=== PATIENT | female | born 1955 | race Caucasian/White ===

== ENCOUNTER 2018-05-31 10:09 | Inpatient (IN) | payer OTHER ==
[~2018-05-31] VITALS: Ht 157.5 cm; Wt 93.5 kg
--- NOTE | 2018-05-31 10:10 | NUR ---
Dr. Zavala at the bedside for MSE.
[2018-05-31 10:26] LABS: BASOPHILS # (AUTO) 0.1 K/uL (0.0-8.0); BASOPHILS % (AUTO) 0.4 % (0.0-2.0); EOSINOPHILS % (AUTO) 0.1 % (0.0-7.0); HEMATOCRIT 35.7 % (31.2-41.9); HEMOGLOBIN 12.1 g/dL (10.9-14.3); LYMPHOCYTES # (AUTO) 1.6 K/uL (20.0-40.0); LYMPHOCYTES % (AUTO) 8.7 % (20.5-51.5); MEAN CORPUSCULAR HEMOGLOBIN 29.7 uug (24.7-32.8); MEAN CORPUSCULAR HGB CONC 34 g/dL (32.3-35.6); MEAN CORPUSCULAR VOLUME 87.5 fL (75.5-95.3); MONOCYTES # (AUTO) 0.6 K/uL (2.0-10.0); MONOCYTES % (AUTO) 3.6 % (0.0-11.0); NEUTROPHILS # (AUTO) 15.5 K/uL (1.8-8.9); NEUTROPHILS % (AUTO) 87.2 % (38.5-71.5); PLATELET COUNT (AUTO) 301 K/uL (179-408); RED BLOOD CELL COUNT(AUTO) 4.08 MIL/uL (3.63-4.92); WHITE BLOOD COUNT (AUTO) 17.8 K/uL (3.8-11.8)
[2018-05-31 10:34] LABS: CREATININE 0.7 mg/dL (0.6-1.3); POTASSIUM 3.9 mmol/L (3.5-5.1)
--- NOTE | 2018-05-31 10:39 | NUR ---
PT IS CURRENTLY A POOR HISTORIAN R/T RESP DISTRESS.
[2018-05-31 10:47] LABS: BILIRUBIN,DIRECT 0.2 mg/dL (0.0-0.2); BILIRUBIN,TOTAL 0.8 mg/dL (0.2-1.0); TOTAL PROTEIN, SERUM 7.6 g/dL (6.4-8.2)
--- NOTE | 2018-05-31 10:52 | NUR ---
PT RECEIVED WITH RESPIRATORY DISTRESS. PT PLACED ON 100% NON RE BREATHER MASK. ABG DONE, HARD COPY RESULT HANDED TO DR GIVENS. ABG RESULTS CURRENTLY NOT VIEWABLE IN [facility]. GENERAL MANAGER FOOD AWARE AND NOTIFIED.
[2018-05-31] MEDS ORDERED: VANCOMYCIN IV 1,000 MG in IV DEXTROSE 5% 250 ML IV ONE (11:00)
[2018-05-31] MEDS ORDERED: methylPREDNISolone SOD SUCC 125 MG/2 ML VIAL IV ONE (11:00)
[2018-05-31] MEDS ORDERED: IV NORMAL SALINE 500 ML BAG IV ONE (11:00)
[2018-05-31] MEDS ORDERED: FUROSEMIDE 20 MG/2 ML VIAL IV ONE (11:00)
[2018-05-31] MEDS ORDERED: PIPERACILLIN SODIUM/TAZOBACTAM 3.375 G in IV DEXTROSE 5% 50 ML IV ONE (11:00)
--- NOTE | 2018-05-31 11:14 | NUR ---
PT UNCOOPERATIVE IN ANSWERING QUESTIONS- NO INFORMATION ON MEDS NOR MEDICAL HX. PT REMAINS AWAKE AND LESS TACHYPNEIC AT THIS TIME.
[2018-05-31] MEDS ORDERED: FUROSEMIDE 40 MG/4 ML VIAL ONE (11:15)
[2018-05-31] MEDS ORDERED: methylPREDNISolone SOD SUCC 125 MG/2 ML VIAL ONE (11:15)
--- NOTE | 2018-05-31 11:18 | NUR ---
PER TIM KLYE PT PLACED ON BIPAP. SETTINGS IPAP 15/ EPAP 5/RATE 15 AND TITRATE FIO2 TO MAINTAIN SPO2 WITHIN NORMAL LIMITS. PT BREATHING APPEARS TO BE MUCH MORE COMFORTABLE ON BIPAP. WILL CONTINUE TO MONITOR.
[2018-05-31] MEDS ORDERED: PIPERACILLIN SODIUM/TAZO 3.375 GM VIAL ONE (11:24)
[2018-05-31] MEDS ORDERED: VANCOMYCIN IV 0 ML ONE (11:25)
[2018-05-31] MEDS ORDERED: VANCOMYCIN IV 200 ML ONE (11:26)
--- NOTE | 2018-05-31 11:40 | NUR ---
Call placed to [facility], Dr. Hooper will be paged.
[2018-05-31] MEDS ORDERED: ONDANSETRON 4 MG/2 ML VIAL IV PRN (13:15)
[2018-05-31] MEDS ORDERED: ACETAMINOPHEN 325 MG TABLET PO PRN (13:15)
[2018-05-31] MEDS ORDERED: HYDROCODONE/APAP 5-325MG TABLET PO PRN (13:15)
[2018-05-31] MEDS ORDERED: DOCUSATE SODIUM 100 MG CAPSULE PO PRN (13:15)
[2018-05-31] MEDS ORDERED: MAGNESIUM HYDROXIDE 30 ML LIQUID UDC PO PRN (13:15)
[2018-05-31] MEDS ORDERED: Z GUARD REMEDY PASTE 57 GM TUBE TOP PRN (13:15)
[2018-05-31] MEDS ORDERED: VANCOMYCIN IV 1 G in PREMIXED 0 EACH IV SCH (13:30)
[2018-05-31] MEDS ORDERED: methylPREDNISolone ACETATE 40 MG VIAL MC SCH (14:00)
[2018-05-31] MEDS ORDERED: ALBUTEROL SULFATE 2.5 MG/3 ML NEBU ONE ×2 (14:19→19:14)
[2018-05-31] MEDS ORDERED: IPRATROPIUM BROMIDE 0.5 MG/2.5 ML NEBU ONE ×3 (14:19→23:19)
[2018-05-31] MEDS: IPRATROPIUM BROMIDE 0.5 MG/2.5 ML NEBU NEB SCH ×3 (15:09→23:17)
[2018-05-31] MEDS: ALBUTEROL SULFATE 2.5 MG/ 0.5 ML NEBU NEB SCH ×3 (15:09→23:17)
[2018-05-31] MEDS ORDERED: IV NORMAL SALINE 100 ML ONE (17:01)
[2018-05-31] MEDS ORDERED: NORMAL SALINE FLUSH 10 ML DISP.SYRIN ONE (17:01)
[2018-05-31] MEDS ORDERED: IOHEXOL 350 100 ML INFUS..BTL ONE (17:01)
[2018-05-31] MEDS ORDERED: SWABABLE VALVE TRANSFER SET EA MC ONE (17:01)
--- NOTE | 2018-05-31 17:46 | NUR ---
WENT TO ASSIST PEDIATRIC IMMUNOLOGIST TO RETRIEVE PATIENT BY 17:26. WHEN ARRIVED, PATIENT WAS SEEN ON VENTILATOR. PATIENT WAS UNCOOPERATIVE AND UNRESPONSIVE. RN AND PEDIATRIC IMMUNOLOGIST AND I DISCONNECTED MACHINERY FOR TRANSFER AND BROUGHT HER TO THE CT EXAM ROOM. WHEN HELPING TRANSFER PATIENT, PATIENT WAS UNRESPONSIVE AND ALSO UNCOOPERATIVE. WHILE TRANSFERRING, WHEN ASK TO SET HER PHONE ASIDE, BECAME UNCOOPERATIVE TO STAFF WHEN HELPING HER TRANSFER. PATIENT COMPLAINED THAT WHEN I WAS HELPING TO TRANSFER I WAS PUSHING HER, THOUGH I WAS ASSISTING WITH CORDS AND THE SHEETS FOR TRANSFER. THEN PATIENT THEN RETORTS BY SAYING THAT WE WERE UNPROFESSIONAL AND AFTERWARD UNCOOPERATIVE WHEN IN THE MIDDLE TRANSFERRING AROUND 17:35. PATIENT REFUSES TO SIGNALIZE FORMS TO CONDUCT THE CT EXAM OF THE CTA CHEST (ANGIO). PATIENT IS THEN TRANSFERRED BACK BY 5:50 BACK TO ER.
--- NOTE | 2018-05-31 18:15 | NUR ---
ARRIVED TO ER TO TRANSPORT PATIENT FOR CTA WITH RADIOLOGY TECHNICIANS. PATIENT ON BIPAP AND SWITCHED PATIENT TO NONREBREATHER FOR TRANSPORTATION. TOOK MONITOR PATIENT ON TRANSPORTATION IS NO SYMPTOMS OF RESPIRATORY DISTRESS. PATIENT IS NONVERBAL ON HER PHONE. PATIENT SATURATING 100%.
--- NOTE | 2018-05-31 18:20 | NUR ---
UPON TRANSFER TO CT PATIENT IS HANDED QUESTIONAIRE TO FILL OUT AND SIGN. PATIENT BECOMES AGGRESSIVE IN RESPONSE THAT SHE WILL REFUSE TO SIGN ANYTHING UNTIL SHE IS EXPLAINED WHAT SHE IS SIGNING. PATIENT IS YELLING ABOUT NOT BEING TREATED PROPERLY WHILE STAFF IS INFORMING PATIENT WHAT THEY ARE DOING AND SHE IS NONVERBAL AND NO RESPONSE. ONCE THE PATIENT IS STARTING TO GET TRANSFERRED TO CT SCAN BED PATIENT BECOMES VERBALLY AGGRESSIVE TO STAFF, YELLING AND SCREAMING VERY ANXIOUS AND SCREAMING AND BECOMING VERY NEEDY YELLING THAT SHE WANTS HER PHONE. EXPLAINED AGAIN TO PATIENT THAT THE PAPER SHE WAS HANDED WAS A QUESTIONAIRE REGARDING THE PROCEDURE. SHE STILL REFUSED TO SIGN. EXPLAINED IF SHE CAN NOT SIGN OR ANSWER THE QUESTIONS THE TEST CAN NOT BE DONE. THE PATIENT WAS ABLE TO MOVE WITH MINIMAL ASSISTANCE AND REFUSED TO ASSIST AND LAID IN THE CT SCAN BED UNTIL WE USED A SLIDER BOARD TO PUT HER BACK ON THE GURNEY.
[2018-05-31 18:27] LABS: ABG BASE EXCESS -4.5 mmol/L; ABG HCO3 20.9 mmol/L; ABG PCO2 39.9 mmHg (35.0-45.0); ABG PH 7.337 (7.350-7.450); ABG PO2 148.2 mmHg (75.0-100.0); ABG SITE RIGHT RADIAL; ABG TOTAL HEMOGLOBIN 12.7 G/dL (12.0-16.0); COHb 1.5 % (0.5-1.5); MetHb 0.1 % (0.0-1.5); O2Hb 97.4 % (94.0-97.0); VENT MODE Mask - NRB 100%
[2018-05-31] MEDS ORDERED: NITROGLYCERIN OINT 1 GM PACKET TP ONE ×2 (18:30→19:33)
--- NOTE | 2018-05-31 18:30 | NUR ---
RETURNED TO ROOM. INFORMED DOCTOR TOSHA THAT PATIENT WAS REFUSING THE PROCEDURE BECAUSE SHE REFUSED TO FILL OUT THE QUESTIONAIRE CLAIMING THAT NOBODY WAS EXPLAINING ANYTHING TO HER. DOCTOR TOSHA WENT TO PATIENTS ROOM EXPLAINING TO HER AGAIN THE PROCEDURE AND INSTRUCTING HER THE NECESSITY OF THE PROCEDURE SO THAT SHE CAN BE ADMITTED AND TREATED. CALLED LOANS CONSULTANT AGAIN TO GO DOWN AGAIN TO REPEAT THE CT. LOANS CONSULTANT BROUGHT THE QUESTIONAIRE PRIOR TO TRANSPORT AND PATIENT THEN FILLED IT OUT AND SIGNED. EVERY ATTEMPT AND APPROACH THE STAFF DOES WITH PATIENT SHE IS RELUCTANT TO DO ANYTHING AND TRIES TO FIND SOMETHING TO COMPLAIN ABOUT. SHE COMPLAINS OF HER HAIR BEING DISMANTLED. SHE COMPLAINS OF NOT BEING ABLE TO TEXT OR TALK ON THE PHONE WHILE WE TRANSFER HER FROM THE RNEY TO CT SCAN AND DURING THE SCAN BY YELLING AND WAVING HER HANDS ALL OVER IN FRUSTRATION AND ANXIETY.
--- NOTE | 2018-05-31 18:56 | NUR ---
Pt returned from CT chest.
--- NOTE | 2018-05-31 19:10 | NUR ---
Report received from Humberto ARRIAGA. Patient on droplet/respiratory isolation R/O TB pending CTA results. Patient AAO, demanding. NAD noted. On BIPAP. Assessment done.
--- NOTE | 2018-05-31 19:15 | NUR ---
RECEIVED PT ON CONTINUOUS BIPAP IPAP 15 EPAP5 RATE 15 FIO2 80%. PT AWAKE AND ALERT. IN LINE TX GIVEN WITH UD ALBUTEROL + UD ATROVENT ORDERED. PT TOLERATING BIPAP AT THIS TIME. NO DISTRESS NOTED. SPO2 100%.
[2018-05-31] MEDS ORDERED: ALBUTEROL SULFATE 2.5 MG/ 0.5 ML NEBU ONE ×2 (19:19→23:19)
--- NOTE | 2018-05-31 19:20 | NUR ---
Patient continues to be demanding and asking questions such as: "what's the result of my test?" referring to CTA. "Am I going to stay here?" "I want some ice chips!" Patient advised appropriately. Still awaiting for CTA results. Able to take some ice chips without problems.
[2018-05-31] MEDS ORDERED: methylPREDNISolone SOD SUCC 40 MG/ML VIAL ONE (19:33)
--- NOTE | 2018-05-31 19:35 | NUR ---
Dr. Osorio spoke with Radiologist re: CTA results. Patient is negative for TB. Will admit to CCU.
[2018-05-31] MEDS: methylPREDNISolone SOD SUCC 40 MG/ML VIAL IV SCH (19:37)
--- NOTE | 2018-05-31 19:40 | NUR ---
RETIREMENT PLAN SPECIALIST Demetrius Mohr here. Spoke with Dr. Osorio re: CTA result. Orders clarified with him. Okayed to do Echocardiogram in am, IVF at 75 ml/H, and to admit patient to CCU. BIPAP FIO2= 80%. Public Affairs Officer aware.
--- NOTE | 2018-05-31 19:49 | NUR ---
Pt. admitted to CCU2 , under care of Onur TUMBLER TENDER. Patient stable. Remains on BIPAP. Belongs List completed.
--- NOTE | 2018-05-31 19:50 | NUR ---
Belonging list completed by day shift. RT Rafa called for transport.
[2018-05-31] MEDS ORDERED: PIPERACILLIN/TAZOBACTAM/D5W 50 ML IV ONE (19:59)
--- NOTE | 2018-05-31 20:05 | NUR ---
PT TRANSPORTED TO CCU 2 WITHOUT INCIDENT NOTED. SPO2 100%. AT 2019 PT PLACED ON NRB RN AWARE. SPO2 98%. NO DISTRESS NOTED. WILL CONTINUE TO MONITOR.
--- NOTE | 2018-05-31 20:20 | NUR ---
Admitted a 63 y.o female patient to CCU2 DX: Respiratory Failure. AAO. As being transferred from [facility] to [facility], patient yells, "I want a towel, I want it right now!" Routine CCU care discussed with patient. Towel provided, patient advised.
[2018-05-31 20:25] VITALS: BP 144/80
[2018-05-31] MEDS: PIPERACILLIN/TAZOBACTAM/D5W 3.375 G in PREMIXED 1 EACH IV SCH (20:40)
[2018-05-31 20:45] VITALS: BP 124/74
[2018-05-31] MEDS: IV NS 1000 ML 1,000 ML IV PRN (20:45)
--- NOTE | 2018-05-31 20:45 | NUR ---
Patient with outbursts; easily gets irritated and impatient. Verbalizing about her care from men such as the paramedics and ER. "There were 6 of them just standing there, doing nothing!" Needs met CHARLES resulting in changes in her behavior to being pleasant and appreciative.
[2018-05-31 21:00] VITALS: BP 123/78
--- NOTE | 2018-05-31 21:00 | NUR ---
Patient demanding some bananas and something to eat. Claims that since she has a lot of urine her Potassium will be low. Order Filler notified; janette requested.
--- NOTE | 2018-05-31 21:10 | NUR ---
Admission data obtained from [facility] and some from patient who seems to be unreliable. When asked about her restorationist affiliation, patient answered, "Love."
--- NOTE | 2018-05-31 21:30 | NUR ---
Placed on NC 4 L while eating. Monitored closely.
[2018-05-31 22:00] VITALS: BP 114/57
[2018-05-31] MEDS ORDERED: IBUPROFEN 800 MG TABLET PO PRN (22:00)
--- NOTE | 2018-05-31 22:00 | NUR ---
Ate well then talking on the phone a lot, calling friends. Coughing non productively. Requesting for cough medicine and Ibuprofen. Desaturates and tachycardic while on NC. Advised. Spoke to FURNACE CONVERTER Jose G Mohr. Orders received. Patient put back on 100% non rebreather. Saturation improved.
[2018-05-31] MEDS: GUAIFENESIN/DEXTROMETHORPHAN 5 ML UDC PO PRN (22:21)
[2018-05-31 23:00] VITALS: BP 127/67
--- NOTE | 2018-05-31 23:19 | NUR ---
Noted Atrovent 0.5 mg and Albuterol 2.5 mg not on med profile on Pyxis for RT administration; thus required to be override. Will inform Pharmacy in AM.
[2018-06-01] VITALS (14 sets, daily range): BP systolic 91–141; BP diastolic 47–110
--- NOTE | 2018-06-01 02:00 | NUR ---
Remains awake, playing with her cell phone. Talks constantly and desaturates easily when she takes off O2 mask. Advised. RT here for breathing treatment. Addendum: 06/01/18 at 0618 by ANA WALKER RN Amended: Links added. Addendum: 06/01/18 at 06 by ANA WALKER RN Amended: Links added.
[2018-06-01] MEDS ORDERED: ALBUTEROL SULFATE 2.5 MG/ 0.5 ML NEBU ONE (02:16)
[2018-06-01] MEDS ORDERED: IPRATROPIUM BROMIDE 0.5 MG/2.5 ML NEBU ONE (02:17)
[2018-06-01] MEDS: ALBUTEROL SULFATE 2.5 MG/ 0.5 ML NEBU NEB SCH ×6 (02:19→23:01)
[2018-06-01] MEDS: IPRATROPIUM BROMIDE 0.5 MG/2.5 ML NEBU NEB SCH ×6 (02:20→23:01)
--- NOTE | 2018-06-01 02:20 | NUR ---
Another med override on Atrovent and Albuterol for Mary Anne Sena, RT.
[2018-06-01] MEDS: methylPREDNISolone SOD SUCC 40 MG/ML VIAL IV SCH ×3 (03:20→17:49)
[2018-06-01] MEDS: PIPERACILLIN/TAZOBACTAM/D5W 3.375 G in PREMIXED 1 EACH IV SCH ×3 (03:20→17:49)
[2018-06-01] MEDS ORDERED: methylPREDNISolone SOD SUCC 40 MG/ML VIAL ONE (03:22)
--- NOTE | 2018-06-01 04:00 | NUR ---
Patient complaining about BP cuff. Reoriented to CCU routines. BP 140/110; refused to have it taken again. No EKG changes. Addendum: 06/01/18 at 0621 by ANA WALKER RN Amended: Links added.
[2018-06-01 04:56] LABS: BASOPHILS % (AUTO) 0.1 % (0.0-2.0); HEMOGLOBIN 11.7 g/dL (10.9-14.3); LYMPHOCYTES # (AUTO) 0.7 K/uL (20.0-40.0); LYMPHOCYTES % (AUTO) 5.4 % (20.5-51.5); MEAN CORPUSCULAR HEMOGLOBIN 28.7 uug (24.7-32.8); MEAN CORPUSCULAR HGB CONC 33 g/dL (32.3-35.6); MONOCYTES # (AUTO) 0.4 K/uL (2.0-10.0); MONOCYTES % (AUTO) 2.8 % (0.0-11.0); NEUTROPHILS # (AUTO) 11.7 K/uL (1.8-8.9); NEUTROPHILS % (AUTO) 91.7 % (38.5-71.5); PLATELET COUNT (AUTO) 249 K/uL (179-408); RED BLOOD CELL COUNT(AUTO) 4.07 MIL/uL (3.63-4.92); WHITE BLOOD COUNT (AUTO) 12.7 K/uL (3.8-11.8)
[2018-06-01] MEDS: GUAIFENESIN/DEXTROMETHORPHAN 5 ML UDC PO PRN ×2 (05:00→20:51)
[2018-06-01 05:01] LABS: BILIRUBIN,TOTAL 0.5 mg/dL (0.2-1.0); CREATININE 0.9 mg/dL (0.6-1.3); MAGNESIUM 2.2 mg/dL (1.8-2.4); PHOSPHOROUS 2.7 mg/dL (2.5-4.9); POTASSIUM 3.3 mmol/L (3.5-5.1); TOTAL PROTEIN, SERUM 6.8 g/dL (6.4-8.2)
--- NOTE | 2018-06-01 06:10 | NUR ---
Bath given; patient tolerated care well. O2 remains 100% non rebreather mask. Still desaturates and lips get dusky when patient removes O2. Monitored closely.
--- NOTE | 2018-06-01 07:31 | NUR ---
Awake most of the night. Still on 100% non rebreather mask and desaturates easily when off O2.
--- NOTE | 2018-06-01 07:50 | NUR ---
ZONING ASSISTANT DEMTRY IN THE UNIT TO SEE PATIENT. UPDATE THE OXYGENATION PATIENT IS ON AT THIS TIME. PATIENT IS OFF BIPAP AND ON 100% NONREBREATHER. PATIENT WILL BE DOWNGRADED PER ZONING ASSISTANT.
[2018-06-01] MEDS: VANCOMYCIN IV 1,250 MG in IV DEXTROSE 5% 500 ML IV SCH (08:07)
--- NOTE | 2018-06-01 08:30 | NUR ---
PLACED PATIENT ON 5L NC WITH HUMIDIFIER WHILE EATS BREAKFAST. PATIENT IS NOT SHORT OF BREATH BUT DESATURATES TO 90%.
[2018-06-01] MEDS ORDERED: CETI10CA PO (10:11)
[2018-06-01] MEDS ORDERED: ASPI-605 PO (10:11)
[2018-06-01] MEDS ORDERED: METO25TA6 PO (10:11)
[2018-06-01] MEDS ORDERED: POTASSIUM CHLORIDE 20 MEQ TAB.PRT.SR PO ONE (10:30)
--- NOTE | 2018-06-01 10:47 | NUR ---
Clinical Pharmacy Note: Vancomycin Pharmacy to Dose Subjective: Vancomycin on this 63 y/o female for indication of PNA Objective: 91kg 157cm BUN 26 Scr 0.9 wbc 12.7 temp 98.5 Assessment/Plan Will continue regimen of vanco 1250mg q20h for estimated trough of 15.7. second dose was today at 0800. Will order trough before 4th scheduled trough (not ordered yet). Will follow and dose per level instead if renal function were to become unstable. Otherwise, will follow trough and adjust as needed.
--- NOTE | 2018-06-01 11:00 | NUR ---
report received from Gibson ARRIAGA. 63 yr old female was admitted on 05/31/18 for pneumonia, chf. transfered from ccu 2. now as a SWATHI status.. iv fluid 1t 75ml/hr.via left hand. on o2 mask aT 10 liters. patient is verbally abusive to nursing staff and would throw temper tantrums. advised need to respect nursing staff. Dheeraj LIZ is aware and he ordered ativan prn. Addendum: 06/01/18 at 1337 by EBONY BUCK RN Amended: Links added.
--- NOTE | 2018-06-01 11:12 | NUR ---
PATIENT DOWNGRADED AND TRANSFERRED TO THE FLOOR. PATIENT HAS EPISODES OF ANXIETY AND TEMPER TANTRUMS WHEN STAFF IS IN THE ROOM. PATIENT TRANSFERRED TO ROOM 219. AND IS SWATHI STATUS. CARE TAKEN OVER BY EBONY ARRIAGA.
[2018-06-01] MEDS ORDERED: LORAZEPAM 1 MG TABLET PO PRN (11:30)
--- NOTE | 2018-06-01 11:38 | NUR ---
PRIOR TO BREATHING TX ADMINISTRATION, PT HEART RATE WAS IN THE 120'S. ALBUTEROL TX NOT GIVEN DUE TO TACHYCARDIA. ATROVENT GIVEN. CORINA BECK AWARE. WILL CONTINUE TO MONITOR.
[2018-06-01] MEDS: IV NS 1000 ML 1,000 ML IV PRN (14:17)
--- NOTE | 2018-06-01 15:31 | NUR ---
ALBUTEROL TX HELD DUE TO TACHYCARDIA. ATROVENT TX GIVEN. HEART RATE IN THE MID 120'S. CORINA CHRISTENSEN.
--- NOTE | 2018-06-01 15:46 | NUR ---
seen by dr baltazar. patient uncooperative with medical exam because she was eating. patient c/o to MD about negative experiences with nursing staff from ED to the MS floor. seen by Patient Experience satisfaction. call to Dheeraj LIZ for crisis team secondary to escalated behaviour such as screaming and having temper tantrums. Alexis Guards here and on standby. talked to Crisis team Charisse, Info requested and MR faxed to her. Charisse said she needs approval from her Glass Blower Addendum: 06/01/18 at 1547 by EBONY BUCK RN Amended: Links added.
--- NOTE | 2018-06-01 15:52 | NUR ---
per charge nurse Karon, crisis team evaluation was cancelled/not approved. psy consult was ordered instead. Addendum: 06/01/18 at 1552 by EBONY BUCK RN Amended: Links added.
--- NOTE | 2018-06-01 16:41 | NUR ---
seen by dr Purcell, cardiology. downgraded to tele lydia. Addendum: 06/01/18 at 1641 by EBONY BUCK RN Amended: Links added.
--- NOTE | 2018-06-01 17:00 | NUR ---
written instructions on the following medications : lasix, vancomycin, piperacillin and methylprednisolone given. patient acnowledge receipt with a signature page placed in chart. Addendum: 06/01/18 at 1852 by EBONY BUCK RN Amended: Links added.
[2018-06-01] MEDS: FUROSEMIDE 40 MG/4 ML VIAL IV SCH (17:41)
--- NOTE | 2018-06-01 19:24 | NUR ---
report give to Rhianna Gonzalez floor Addendum: 06/01/18 at 1924 by EBONY BUCK RN Amended: Links added.
--- NOTE | 2018-06-01 19:30 | NUR ---
nsg: pt received a/ox 4. no acute distress noted. denies discomfort. on 5L O2 via nc saturating at 95%. tele, ST with hr 120's. pt a bit agitated. pleasant but anxious. reassurance and emotional support provided. call light within reach. bed alarm on.
[2018-06-01] MEDS: LACTOBACILLUS RHAMNOSUS GG 1 EACH CAPSULE PO SCH (20:25)
[2018-06-02] VITALS: BP 114/72
[2018-06-02] MEDS: LORAZEPAM 2 MG/1 ML VIAL IV PRN ×2 (00:38→13:45)
[2018-06-02] MEDS: IPRATROPIUM BROMIDE 0.5 MG/2.5 ML NEBU NEB SCH ×6 (02:40→23:10)
[2018-06-02] MEDS: ALBUTEROL SULFATE 2.5 MG/ 0.5 ML NEBU NEB SCH ×6 (02:40→23:10)
[2018-06-02] MEDS: methylPREDNISolone SOD SUCC 40 MG/ML VIAL IV SCH ×3 (02:43→18:12)
[2018-06-02] MEDS: PIPERACILLIN/TAZOBACTAM/D5W 3.375 G in PREMIXED 1 EACH IV SCH ×3 (02:43→18:12)
[2018-06-02 04:00] VITALS: BP 115/68
[2018-06-02] MEDS: VANCOMYCIN IV 1,250 MG in IV DEXTROSE 5% 500 ML IV SCH (04:03)
--- NOTE | 2018-06-02 06:00 | NUR ---
nsg: pt awake, alert, all needs attended. on 6L O2 via mask, saturating at 95%. tele, SR. had 8 beats of vtach, asymptomatic. also, had episode of paroxysmal atrial tach. cont to monitor.
[2018-06-02 06:06] LABS: BASOPHILS % (AUTO) 0.1 % (0.0-2.0); HEMATOCRIT 33.6 % (31.2-41.9); HEMOGLOBIN 11.1 g/dL (10.9-14.3); LYMPHOCYTES # (AUTO) 0.8 K/uL (20.0-40.0); LYMPHOCYTES % (AUTO) 5.2 % (20.5-51.5); MEAN CORPUSCULAR HEMOGLOBIN 28.7 uug (24.7-32.8); MEAN CORPUSCULAR HGB CONC 33 g/dL (32.3-35.6); MEAN CORPUSCULAR VOLUME 86.7 fL (75.5-95.3); MONOCYTES # (AUTO) 0.4 K/uL (2.0-10.0); MONOCYTES % (AUTO) 2.7 % (0.0-11.0); NEUTROPHILS # (AUTO) 13.7 K/uL (1.8-8.9); PLATELET COUNT (AUTO) 252 K/uL (179-408); RED BLOOD CELL COUNT(AUTO) 3.88 MIL/uL (3.63-4.92); WHITE BLOOD COUNT (AUTO) 14.9 K/uL (3.8-11.8)
[2018-06-02 06:16] LABS: CREATININE 0.9 mg/dL (0.6-1.3); POTASSIUM 3.9 mmol/L (3.5-5.1)
--- NOTE | 2018-06-02 09:18 | NUR ---
Pt seen and evaluated by Dr. Lopez. Pt was noted to be rude towards the doctor. Pt states she wants HOT coffee. Provided the pt with hot coffee
--- NOTE | 2018-06-02 09:29 | NUR ---
Pt refused psych consult
[2018-06-02] MEDS: LACTOBACILLUS RHAMNOSUS GG 1 EACH CAPSULE PO SCH ×2 (09:47→20:24)
[2018-06-02] MEDS: FUROSEMIDE 40 MG/4 ML VIAL IV SCH ×2 (09:47→17:52)
--- NOTE | 2018-06-02 11:00 | NUR ---
Informed LAUNDRY WORKER about the pt having CHF and pt being on Lasix 40 and pt being on hydration 75cc/hr. LAUNDRY WORKER states to hold hydration as of right now
[2018-06-02 11:29] VITALS: BP 108/62
--- NOTE | 2018-06-02 13:53 | NUR ---
Pt noted with anxiety and increase HR. Noted with productive cough, offered Ativan and pt state yes, in order to help her. She asked about the dose and it was informed that it was 1mg, she stated "I can handle that"
--- NOTE | 2018-06-02 14:55 | NUR ---
Clinical Pharmacy Note: Vancomycin Pharmacy to Dose Subjective: Vancomycin on this 63 y/o female for indication of PNA Objective: 91kg 157cm BUN 24 Scr 0.9 wbc 14.9 temp 98.7 Assessment/Plan Will continue regimen of vanco 1250mg q20h for estimated trough of 15.7. second dose was today at 0403. Will order trough before 4th scheduled trough (not ordered yet). Will follow and dose per level instead if renal function were to become unstable. Otherwise, will follow trough and adjust as needed.
[2018-06-02 15:52] VITALS: BP 110/62
--- NOTE | 2018-06-02 18:06 | NUR ---
Seen and evaluated by Virginie VEGA
--- NOTE | 2018-06-02 19:20 | NUR ---
Received pt sitting on the chair. AAOX4. On continuous O2 at 4LPM via NC. O2 sat at 99%. IV site on left hand intact and patent. FC intact and draining via gravity. Safety measure initiated and call soares within reach.
[2018-06-02 20:02] VITALS: BP 112/66
[2018-06-02] MEDS ORDERED: METOPROLOL TARTRATE 25 MG TABLET PO SCH (21:00)
--- NOTE | 2018-06-03 00:30 | NUR ---
Noted patient IV line dislodge. Started new IV line on right hand #22 gauge.
[2018-06-03] MEDS: VANCOMYCIN IV 1,250 MG in IV DEXTROSE 5% 500 ML IV SCH (00:54)
[2018-06-03] MEDS: LORAZEPAM 2 MG/1 ML VIAL IV PRN (01:11)
[2018-06-03] MEDS: ALBUTEROL SULFATE 2.5 MG/ 0.5 ML NEBU NEB SCH ×4 (02:59→15:20)
[2018-06-03] MEDS: IPRATROPIUM BROMIDE 0.5 MG/2.5 ML NEBU NEB SCH ×4 (02:59→15:20)
[2018-06-03] MEDS: methylPREDNISolone SOD SUCC 40 MG/ML VIAL IV SCH ×3 (03:22→18:11)
[2018-06-03] MEDS: PIPERACILLIN/TAZOBACTAM/D5W 3.375 G in PREMIXED 1 EACH IV SCH ×3 (03:22→18:15)
[2018-06-03 04:00] VITALS: BP 116/67
--- NOTE | 2018-06-03 06:09 | NUR ---
AAOX4. On continuous O2 at 4LPM via NC. O2 sat at 98%. VS WNL. IV site on left hand intact and patent. No adverse reaction noted from IV ABX. FC intact and draining via gravity. Safety measure maintained and call soares within reach.
[2018-06-03 06:59] LABS: BASOPHILS % (AUTO) 0.1 % (0.0-2.0); HEMATOCRIT 34.6 % (31.2-41.9); HEMOGLOBIN 11.6 g/dL (10.9-14.3); LYMPHOCYTES # (AUTO) 0.7 K/uL (20.0-40.0); LYMPHOCYTES % (AUTO) 4.8 % (20.5-51.5); MEAN CORPUSCULAR HEMOGLOBIN 29.2 uug (24.7-32.8); MEAN CORPUSCULAR HGB CONC 34 g/dL (32.3-35.6); MEAN CORPUSCULAR VOLUME 87.3 fL (75.5-95.3); MONOCYTES # (AUTO) 0.8 K/uL (2.0-10.0); MONOCYTES % (AUTO) 5.8 % (0.0-11.0); NEUTROPHILS # (AUTO) 12.8 K/uL (1.8-8.9); NEUTROPHILS % (AUTO) 89.3 % (38.5-71.5); PLATELET COUNT (AUTO) 266 K/uL (179-408); RED BLOOD CELL COUNT(AUTO) 3.96 MIL/uL (3.63-4.92); WHITE BLOOD COUNT (AUTO) 14.3 K/uL (3.8-11.8)
[2018-06-03 07:28] LABS: MAGNESIUM 2.5 mg/dL (1.8-2.4); PHOSPHOROUS 3.5 mg/dL (2.5-4.9); POTASSIUM 4.1 mmol/L (3.5-5.1)
--- NOTE | 2018-06-03 07:31 | NUR ---
Received pt in the bathroom. O2 via NC noted. No immediate s/s of pain or discomfort. Pt is able to verbalize her needs.
[2018-06-03] MEDS: FUROSEMIDE 40 MG/4 ML VIAL IV SCH ×2 (08:32→16:04)
[2018-06-03] MEDS: LACTOBACILLUS RHAMNOSUS GG 1 EACH CAPSULE PO SCH (08:32)
[2018-06-03] MEDS ORDERED: LISINOPRIL 5 MG TABLET PO SCH (09:00)
--- NOTE | 2018-06-03 09:31 | NUR ---
Clinical Pharmacy Note: Vancomycin Pharmacy to Dose Subjective: Vancomycin on this 63 y/o female for indication of PNA Objective: 91kg 157cm BUN 27 Scr 1.0 wbc 14.3 temp 98.2 Assessment/Plan Will continue regimen of vanco 1250mg q20h for estimated trough of 15.7. 3rd dose was today at midnight. Will order trough before 4th scheduled trough (ordered for today at 1930). Pharmacist will review the level & adjust the dose if needed. Will follow.
[2018-06-03] MEDS: GUAIFENESIN/DEXTROMETHORPHAN 5 ML UDC PO PRN (11:25)
[2018-06-03 11:54] VITALS: BP 119/61
[2018-06-03 15:06] VITALS: BP 127/58
[2018-06-03] MEDS ORDERED: FURO-151 PO (15:10)
[2018-06-03] MEDS ORDERED: METH4TAB3 PO (15:10)
[2018-06-03] MEDS ORDERED: LISI-607 PO (15:10)
[2018-06-03] MEDS ORDERED: ALBU18HF2 INH (15:11)
--- NOTE | 2018-06-03 15:49 | NUR ---
Pt has been discharge with orders from Virginie LIZ. PT O2 is ranging from 94%96% room air. Pt is able to verbalize her needs. Personal belongings being accounted by DERMATOLOGY NURSE PRACTITIONER. Pt is aware of discharge orders
--- NOTE | 2018-06-03 19:21 | NUR ---
Pt is ready to go home. Her brother will be picking her up. IV line and ID band removed. Pharmacist came up to explain all prescriptions. Pt shows no s/s immediate SOB, pain, distress or discomfort
--- NOTE | 2018-06-03 19:30 | NUR ---
RECEIVED PATIENT IN BED WAITING FOR RIDE TO GO HOME.
--- NOTE | 2018-06-03 19:45 | NUR ---
PATIENT LEFT FACILITY IN STABLE CONDITION.
[2018-06-04] MEDS ORDERED: ASPIRIN EC 81 MG TABLET.DR PO SCH (09:00)
== END 2018-06-03 19:45 | disposition home health service (06) | DRG 291 ==
LOC: ER 10:09 → TELE 14:17 → UNDOADMIN 14:17 → CCU 19:55 → TELE-TD 06-01 10:54 → TELE 06-01 17:19 → MED 06-02 18:27
PROVIDERS: ADMIT Nurse Practitioner Acute Care; ATTEND Nurse Practitioner Acute Care
PROC: 5A09357 Assistance with Respiratory Ventilation, Less than 24 Consecutive Hours, Continuous Positive Airway Pressure (ICD-10-PCS; principal; 2018-05-31)
DX: I11.0 Hypertensive heart disease with heart failure (principal); J15.6 Pneumonia due to other Gram-negative bacteria; J96.01 Acute respiratory failure with hypoxia; J15.9 Unspecified bacterial pneumonia; J44.1 Chronic obstructive pulmonary disease with (acute) exacerbation; E87.1 Hypo-osmolality and hyponatremia; J44.0 Chronic obstructive pulmonary disease with (acute) lower respiratory infection; I50.23 Acute on chronic systolic (congestive) heart failure; I42.9 Cardiomyopathy, unspecified; J45.998 Other asthma; F41.9 Anxiety disorder, unspecified; E66.9 Obesity, unspecified; Z68.37 Body mass index [BMI] 37.0-37.9, adult; Z87.440 Personal history of urinary (tract) infections; Z86.73 Personal history of transient ischemic attack (TIA), and cerebral infarction without residual deficits; Z82.49 Family history of ischemic heart disease and other diseases of the circulatory system; Z87.891 Personal history of nicotine dependence; E09.9 Drug or chemical induced diabetes mellitus without complications; T38.0X5A Adverse effect of glucocorticoids and synthetic analogues, initial encounter; Y92.009 Unspecified place in unspecified non-institutional (private) residence as the place of occurrence of the external cause; G47.30 Sleep apnea, unspecified
CPT/HCPCS: 36415; 36600; 70030-TC; 71045; 71275; 82785; 83735; 84100; 85025; 87040; 92610; 93005; 93307; 94640; 94660; A4663; J1940; J2060; J2543; J2920; J2930; J3370; J3490; J3590; J7030; J7060; Q9967

== ENCOUNTER 2018-11-18 22:22 | Inpatient (IN) | payer OTHER ==
[~2018-11-18] VITALS: Ht 165.1 cm; Wt 102.1 kg
[~2018-11-18 22:22] MED LIST: ALBU18HF2 INH; ASPI-605 PO; CETI10CA PO; FURO-151 PO; LISI-607 PO; METH4TAB3 PO; METO25TA6 PO
[2018-11-18] MEDS ORDERED: predniSONE 10 MG TABLET ONE (22:42)
[2018-11-18] MEDS ORDERED: predniSONE 50 MG TABLET ONE (22:42)
[2018-11-18] MEDS ORDERED: IPRATROPIUM BROMIDE 0.5 MG/2.5 ML NEBU ONE (22:43)
[2018-11-18] MEDS ORDERED: ALBUTEROL SULFATE 2.5 MG/3 ML NEBU ONE (22:44)
[2018-11-18] MEDS ORDERED: ALBUTEROL SULFATE 2.5 MG/3 ML NEBU NEB ONE (22:45)
[2018-11-18] MEDS ORDERED: IPRATROPIUM BROMIDE 0.5 MG/2.5 ML NEBU NEB ONE (22:45)
[2018-11-18] MEDS ORDERED: predniSONE 10 MG TABLET PO ONE (22:45)
--- NOTE | 2018-11-18 22:47 | NUR ---
PATIENT BIB AMBULANCE RA 83 FROM HOME FOR SOB, PATIENT CALLED 911. RECEIVED HHN TREATMENT EN ROUTE TO ER. UPON ARRIVAL O2 SAT 89% ON RA RESPIRATIONS SHALLOW AND LABORED 30RPM. PLACED ON O2 3L VIA NC. 97%. RESPIRATIONS 24 AT THIS TIME. RECEIVED PREDNISONE 60MGPO, HHN TREATMENT BY RT, CXR DONE, LABS DRWN.
[2018-11-18] MEDS ORDERED: ALBUTEROL SULFATE 1.25 MG/3 ML NEBU ONE (22:50)
[2018-11-18] MEDS ORDERED: VANCOMYCIN IV 1,000 MG in IV DEXTROSE 5% 250 ML IV ONE (23:00)
[2018-11-18] MEDS ORDERED: PIPERACILLIN SODIUM/TAZOBACTAM 3.375 G in IV DEXTROSE 5% 50 ML IV ONE (23:00)
--- NOTE | 2018-11-18 23:00 | NUR ---
FAMILY CALLED LEFT PHONE NUMBERS JA JACKSON (NIECE) [phone] DONALD JACKSON (SISTER) [phone] ALBERTO JACKSON (BROTHER) [phone]
[2018-11-18] MEDS ORDERED: VANCOMYCIN IV 200 ML ONE (23:03)
[2018-11-18 23:05] LABS: BASOPHILS # (AUTO) 0.1 K/uL (0.0-8.0); BASOPHILS % (AUTO) 0.4 % (0.0-2.0); EOSINOPHILS % (AUTO) 0.2 % (0.0-7.0); HEMATOCRIT 35.8 % (31.2-41.9); HEMOGLOBIN 12.3 g/dL (10.9-14.3); LYMPHOCYTES # (AUTO) 1.8 K/uL (20.0-40.0); LYMPHOCYTES % (AUTO) 11.1 % (20.5-51.5); MEAN CORPUSCULAR HEMOGLOBIN 29.9 uug (24.7-32.8); MEAN CORPUSCULAR HGB CONC 34 g/dL (32.3-35.6); MEAN CORPUSCULAR VOLUME 87.1 fL (75.5-95.3); MONOCYTES # (AUTO) 0.7 K/uL (2.0-10.0); MONOCYTES % (AUTO) 4.7 % (0.0-11.0); NEUTROPHILS # (AUTO) 13.3 K/uL (1.8-8.9); NEUTROPHILS % (AUTO) 83.6 % (38.5-71.5); PLATELET COUNT (AUTO) 342 K/uL (179-408); RED BLOOD CELL COUNT(AUTO) 4.12 MIL/uL (3.63-4.92); WHITE BLOOD COUNT (AUTO) 15.9 K/uL (3.8-11.8)
[2018-11-18 23:18] LABS: CREATININE 0.9 mg/dL (0.6-1.3); POTASSIUM 4.1 mmol/L (3.5-5.1)
[2018-11-18 23:19] LABS: BILIRUBIN,DIRECT 0.2 mg/dL (0.0-0.2); BILIRUBIN,TOTAL 0.7 mg/dL (0.1-1.0)
[2018-11-18 23:20] LABS: TOTAL PROTEIN, SERUM 7.6 g/dL (6.4-8.2)
[2018-11-19] MEDS ORDERED: IV NORMAL SALINE 500 ML BAG IV ONE
--- NOTE | 2018-11-19 00:22 | NUR ---
Paged [facility] panel. Waiting for Chris Lopez SUPERVISOR PHOTOCOMPOSITION to call back
[2018-11-19] MEDS ORDERED: PIPERACILLIN/TAZOBACTAM/D5W 50 ML IV SCH (00:45)
[2018-11-19] MEDS ORDERED: ONDANSETRON 4 MG/2 ML VIAL IV PRN (00:45)
[2018-11-19] MEDS ORDERED: ACETAMINOPHEN 325 MG TABLET PO PRN (00:45)
[2018-11-19] MEDS ORDERED: Z GUARD REMEDY PASTE 57 GM TUBE TOP PRN (00:45)
[2018-11-19] MEDS ORDERED: MAGNESIUM HYDROXIDE 30 ML LIQUID UDC PO PRN (00:45)
[2018-11-19] MEDS ORDERED: HYDROCODONE/APAP 5-325MG TABLET PO PRN (00:45)
--- NOTE | 2018-11-19 00:52 | NUR ---
Pt. admitted to [facility] , under care of Dr. RAMACHANDRAN Belongs List completed. REPORT GIVEN TO CORINA HANCOCK. RN TO COMPLETE ANTIBIOTICS INFUSING AT THIST TIME.
[2018-11-19 01:25] VITALS: BP 113/76
--- NOTE | 2018-11-19 01:25 | NUR ---
ADMITTED PATIENT IN TELE. DX: SOB EXACERBATION. PATIENT HAD NO COMPLAINTS OF PAIN, JUST DISCOMFORT IN HER CHEST DUE SOB. PATIENT NOTED WITH USE OF ACCESSORY MUSCLES AND SHALLOW BREATHES. PATIENT IS ON 3L NC. HAS IV ON THE LEFT WRIST. BED IS IN HIGH FOWLERS AND A LOW AND LOCKED POSITION. CALL LIGHT IS WITHIN REACH. WILL CONTINUE TO MONITOR.
[2018-11-19] MEDS: ALBUTEROL SULFATE 2.5 MG/3 ML NEBU NEB SCH ×2 (01:49→07:49)
[2018-11-19] MEDS: IPRATROPIUM BROMIDE 0.5 MG/2.5 ML NEBU NEB SCH ×2 (01:49→07:49)
[2018-11-19] MEDS ORDERED: VANCOMYCIN IV 500 MG in IV NORMAL SALINE 100 ML IV ONE (02:00)
[2018-11-19] MEDS ORDERED: ENOXAPARIN SODIUM 40 MG/0.4 ML DISP.SYRIN SQ ONE (02:00)
--- NOTE | 2018-11-19 02:00 | NUR ---
PATIENT RECEIVED BREATHING TREATMENT AND TOLERATED WELL. SAYS SHE FEELS BETTER.
[2018-11-19] MEDS ORDERED: VANCOMYCIN HCL 500 MG VIAL ONE (02:30)
[2018-11-19 03:53] VITALS: BP 104/71
--- NOTE | 2018-11-19 06:48 | NUR ---
PATIENT SLEPT WELL THROUGHOUT THE SHIFT. NO SIGNS OF ACUTE DISTRESS. VANCOMYCIN 500MG IN 100ML NS GIVEN AND TOLERATED WELL. NO COMPLAINTS OF PAIN. SAFETY MEASURES GIVEN.
[2018-11-19] MEDS: methylPREDNISolone SOD SUCC 40 MG/ML VIAL IV SCH ×3 (07:36→21:39)
[2018-11-19] MEDS: LISINOPRIL 5 MG TABLET PO SCH (08:00)
[2018-11-19] MEDS ORDERED: PIPERACILLIN/TAZOBACTAM/D5W 50 ML IV ONE (08:00)
[2018-11-19] MEDS ORDERED: methylPREDNISolone SOD SUCC 40 MG/ML VIAL IV SCH (09:00)
[2018-11-19 11:40] VITALS: BP 102/51
[2018-11-19] MEDS: LEVOFLOXACIN 500 MG/D5W 500 MG in PREMIXED 1 EACH IV SCH (12:54)
[2018-11-19 15:16] VITALS: BP 106/64
[2018-11-19] MEDS: ALBUTEROL SULFATE 2.5 MG/3 ML NEBU NEB PRN (15:51)
[2018-11-19] MEDS: IPRATROPIUM BROMIDE 0.5 MG/2.5 ML NEBU NEB PRN (15:51)
--- NOTE | 2018-11-19 19:30 | NUR ---
RECEIVED PATIENT IN BED, AWAKE AND ALERT. IN NO ACUTE DISTRESS. DENIES ANY PAIN. HEPLOCK ON THE LEFT WRIST IS INTACT. SAFETY MEASURES INITIATED. BED IS IN A LOW AND LOCKED POSITION. CALL LIGHT WITHIN REACH. WILL CONTINUE TO MONITOR.
--- NOTE | 2018-11-19 19:32 | NUR ---
PT TOLERATES BREATHING TX, DENIES PAIN AT THIS TIME, CALM, COOPERATIVE, NO SIGNS OF RESPIRATORY DISTRESS. PT IS HEPLOCK. CONTINUE TO MONITOR PT.
--- NOTE | 2018-11-19 20:00 | NUR ---
Received patient awake & alert no SOB denies chest pain. Vital signs WNL, sinus tach on monitor.
[2018-11-19 20:22] VITALS: BP 115/65
[2018-11-19] MEDS ORDERED: ENOXAPARIN SODIUM 40 MG/0.4 ML DISP.SYRIN SQ SCH (21:00)
[2018-11-20] VITALS: BP 126/79
[2018-11-20] MEDS ORDERED: ZOLPIDEM 5 MG TABLET PO PRN (02:00)
[2018-11-20] MEDS: ZOLPIDEM 5 MG TABLET PO PRN (02:02)
--- NOTE | 2018-11-20 02:05 | NUR ---
Patient remains awake requesting meds for insomnia. Paged hone operator MD, received orders & carried out. Ambien 5 mg po given.
[2018-11-20 04:11] VITALS: BP 121/73
--- NOTE | 2018-11-20 04:15 | NUR ---
Asleep, no sign of distress. Tele sinus rhythm w/ HR 98 bpm.
[2018-11-20] MEDS: methylPREDNISolone SOD SUCC 40 MG/ML VIAL IV SCH ×3 (06:19→21:19)
[2018-11-20 06:58] LABS: CREATININE 0.9 mg/dL (0.6-1.3); MAGNESIUM 2.2 mg/dL (1.8-2.4); PHOSPHOROUS 3.3 mg/dL (2.5-4.9); POTASSIUM 5.1 mmol/L (3.5-5.1)
[2018-11-20 07:07] LABS: THYROID STIMULATING HORMONE 0.305 mIU/mL (0.358-3.740)
[2018-11-20 07:15] LABS: BASOPHILS % (AUTO) 0.2 % (0.0-2.0); EOSINOPHILS % (AUTO) 0.1 % (0.0-7.0); HEMATOCRIT 34.2 % (31.2-41.9); HEMOGLOBIN 11.8 g/dL (10.9-14.3); LYMPHOCYTES % (AUTO) 6.1 % (20.5-51.5); MEAN CORPUSCULAR HEMOGLOBIN 29.7 uug (24.7-32.8); MEAN CORPUSCULAR HGB CONC 35 g/dL (32.3-35.6); MEAN CORPUSCULAR VOLUME 86.1 fL (75.5-95.3); MONOCYTES % (AUTO) 4.2 % (0.0-11.0); NEUTROPHILS % (AUTO) 89.4 % (38.5-71.5); PLATELET COUNT (AUTO) 300 K/uL (179-408); RED BLOOD CELL COUNT(AUTO) 3.97 MIL/uL (3.63-4.92); WHITE BLOOD COUNT (AUTO) 16.8 K/uL (3.8-11.8)
[2018-11-20 07:16] LABS: MONOCYTES # (AUTO) 0.7 K/uL (2.0-10.0)
--- NOTE | 2018-11-20 07:30 | NUR ---
RECEIVED PATIENT LAYING IN BED, ALERT AWAKE AND ORIENTED. PATIENT IS ON 3L OF OXYGEN VIA NASAL CANNULA. NO SIGNS OF DISTRESS NOTED. PATIENT REPORTS SHE IS COMFORTABLE AT THE MOMENT. BED IN LOW POSITION, CALL LIGHT WITHIN REACH.
--- NOTE | 2018-11-20 08:00 | NUR ---
PATIENT ON TELE SINUS RHYTHM 99 WITH FREQUENT PVCS. PATIENT AWAKE IN BED, IN NO DISTRESS.
[2018-11-20] MEDS: ASPIRIN EC 81 MG TABLET.DR PO SCH (09:54)
[2018-11-20] MEDS: LISINOPRIL 5 MG TABLET PO SCH (09:58)
[2018-11-20 11:29] VITALS: BP 119/63
[2018-11-20] MEDS: LEVOFLOXACIN 500 MG/D5W 500 MG in PREMIXED 1 EACH IV SCH (13:12)
[2018-11-20 15:21] VITALS: BP 128/90
[2018-11-20] MEDS: FUROSEMIDE 40 MG/4 ML VIAL IV SCH (17:33)
[2018-11-20] MEDS: CARVEDILOL 3.125 MG TABLET PO SCH (17:33)
--- NOTE | 2018-11-20 18:20 | NUR ---
PATIENT IS LAYING IN BED, NO SHORTNESS OF BREATH REPORTED BY THE PATIENT. NO RESPIRATORY DISTRESS NOTED. TELE SHOWING SINUS TACHY WITH PVC. BED IN LOW POSITION, CALL LIGHT WITHIN REACH.
--- NOTE | 2018-11-20 19:55 | NUR ---
PATIENT ON BED, ALERT AND AWAKE NO C/O PAIN OR ANY DISCOMFORT . WILL CONTINUE TO MONITOR
[2018-11-20 20:08] VITALS: BP 121/75
[2018-11-21] VITALS: BP 113/68
[2018-11-21] MEDS: ZOLPIDEM 5 MG TABLET PO PRN ×2 (00:27→22:20)
[2018-11-21 04:40] VITALS: BP 118/75
[2018-11-21] MEDS: methylPREDNISolone SOD SUCC 40 MG/ML VIAL IV SCH ×4 (06:03→21:36)
--- NOTE | 2018-11-21 06:59 | NUR ---
PATIENT SLEPT ABOUT 7 HRS . NO C/O PAIN OR ANY DISCOMFORT. CONTINUING ON SOLUMEDROL AND ATB PRESCRIBED. WILL CONTINUE TO MONITOR
[2018-11-21] MEDS: CARVEDILOL 3.125 MG TABLET PO SCH ×2 (08:52→17:41)
[2018-11-21] MEDS: LISINOPRIL 5 MG TABLET PO SCH (08:53)
[2018-11-21] MEDS: FUROSEMIDE 40 MG/4 ML VIAL IV SCH ×2 (08:53→17:40)
[2018-11-21] MEDS: IPRATROPIUM BROMIDE 0.5 MG/2.5 ML NEBU NEB PRN ×3 (09:10→22:56)
[2018-11-21] MEDS: ALBUTEROL SULFATE 2.5 MG/3 ML NEBU NEB PRN ×3 (09:10→22:56)
[2018-11-21 12:16] VITALS: BP 106/58
--- NOTE | 2018-11-21 12:48 | NUR ---
PATIENT SEEN AND EXAMINED BY THE WOOD PREPARATION SUPERVISOR WITH NEW ORDERS AND NOTED.
[2018-11-21] MEDS: LEVOFLOXACIN 500 MG/D5W 500 MG in PREMIXED 1 EACH IV SCH (13:22)
--- NOTE | 2018-11-21 14:31 | NUR ---
PATIENT ALREADY RECEIVED 40 MG AT ABOUT 1330 TODAY
--- NOTE | 2018-11-21 16:00 | NUR ---
ASSISTED PATIENT WITH AMBULATION IN THE [address] WAY WITHOUT O2 BUT STATED FEELS SHORTNESS OF BREATH ASSISTED BACK INTO HER ROOM AND O2 RESUMED
--- NOTE | 2018-11-21 16:00 | NUR ---
PATIENT CONTINUES TO USE O2 ON AND OFF MORE OFF THAN ON BUT SATURATION REMAINS WNL ON ROOM SO PATIENT INSTRUCTED TO USE O2 ONLY NEEDED AND EXPRESSED UNDERSTANDING.
[2018-11-21 16:25] VITALS: BP 116/65
--- NOTE | 2018-11-21 18:00 | NUR ---
RESTING WITH NO ADVERSE OR ALLERGIC REACTIONS FROM ANTIBIOTICS ORDERED WILL OBSERVE HHN GIVEN NEEDED.
[2018-11-21 20:02] VITALS: BP 112/61
--- NOTE | 2018-11-21 20:10 | NUR ---
RECEIVED PATIENT IN BED ALERT ORIENTED, NO SOB NO CHEST PAIN, TELE MONITOR SINU RHYTHM WITH EPISODES OF PVC. CONT ON OXYGEN AT 2 LITER, OXYGEN SAT 95% AT THIS TIME. GIVEN HHN TX BY RT ORDERED.
[2018-11-22 05:30] VITALS: BP 123/79
[2018-11-22] MEDS: methylPREDNISolone SOD SUCC 40 MG/ML VIAL IV SCH ×2 (06:03→20:52)
[2018-11-22 06:52] LABS: BASOPHILS % (AUTO) 0.1 % (0.0-2.0); HEMATOCRIT 35.3 % (31.2-41.9); HEMOGLOBIN 12.2 g/dL (10.9-14.3); LYMPHOCYTES # (AUTO) 1.1 K/uL (20.0-40.0); MEAN CORPUSCULAR HEMOGLOBIN 29.6 uug (24.7-32.8); MEAN CORPUSCULAR HGB CONC 35 g/dL (32.3-35.6); MEAN CORPUSCULAR VOLUME 85.7 fL (75.5-95.3); MONOCYTES # (AUTO) 0.7 K/uL (2.0-10.0); MONOCYTES % (AUTO) 4.7 % (0.0-11.0); NEUTROPHILS # (AUTO) 12.2 K/uL (1.8-8.9); NEUTROPHILS % (AUTO) 87.2 % (38.5-71.5); PLATELET COUNT (AUTO) 306 K/uL (179-408); RED BLOOD CELL COUNT(AUTO) 4.12 MIL/uL (3.63-4.92); WHITE BLOOD COUNT (AUTO) 13.9 K/uL (3.8-11.8)
[2018-11-22 07:17] LABS: CREATININE 0.8 mg/dL (0.6-1.3); MAGNESIUM 2.3 mg/dL (1.8-2.4); PHOSPHOROUS 3.9 mg/dL (2.5-4.9); POTASSIUM 3.8 mmol/L (3.5-5.1)
--- NOTE | 2018-11-22 07:42 | NUR ---
AWAKE ALERT AND ORIENTED WITH O2 AT 2L/M BY NASAL CANULA WITH NO SOB AT THIS TIME REMAIN ON ANTIBIOTICS ORDERED WITH NO ADVERSE OR ALLERGIC REACTIONS AT THIS TIME MADE COMFORTABLE CALL LIGHTS AND PERSONAL BELONGINGS ARE WITHIN EASY REACH WILL CONTINUE TO OBSERVE AND PROVIDE COMFORT.
[2018-11-22] MEDS: ASPIRIN EC 81 MG TABLET.DR PO SCH (08:29)
[2018-11-22] MEDS: LISINOPRIL 5 MG TABLET PO SCH (08:30)
[2018-11-22] MEDS: CARVEDILOL 3.125 MG TABLET PO SCH ×2 (08:30→17:14)
[2018-11-22] MEDS ORDERED: FUROSEMIDE 20 MG/2 ML VIAL IV SCH (09:00)
[2018-11-22] MEDS: IPRATROPIUM BROMIDE 0.5 MG/2.5 ML NEBU NEB PRN (09:53)
[2018-11-22] MEDS: ALBUTEROL SULFATE 2.5 MG/3 ML NEBU NEB PRN (09:53)
--- NOTE | 2018-11-22 10:54 | NUR ---
DR OTT HERE SEEN PATIENT AND STATED THAT THE PATIENT COMPLAINED THAT SHE DID NOT SLEEP WELL LAST NITE DESPITE SEDATIVE AND HE STATED TO CHANGE HER PM DOSE OF LASIX TO 1500 INSTEAD OF 2100 PHARMACY NOTIFIED.
--- NOTE | 2018-11-22 11:00 | NUR ---
PATIENT USES O2 ON AND OFF AND WAS INSTRUCTED AT THIS TIME TO REFRAIN USING HER O2 UNLESS SHE FEEL SHORT OF BREATH AND SHOULD NOTIFY THE NURSE SINCE HER SATURATION IS 95-96 PERCENT ON ROOM AIR AND SHE EXPRESSED UNDERSTANDING.
[2018-11-22 11:46] VITALS: BP 107/58
[2018-11-22] MEDS: LEVOFLOXACIN 500 MG/D5W 500 MG in PREMIXED 1 EACH IV SCH (13:02)
[2018-11-22] MEDS: FUROSEMIDE 20 MG/2 ML VIAL IV SCH (14:43)
[2018-11-22 15:50] VITALS: BP 102/60
--- NOTE | 2018-11-22 17:28 | NUR ---
PATIENT IS RESTING IN HER ROOM EATING DINNER WITH NO RESPIRATORY DISTRESS ON ROOM AIR AT THIS TIME.
--- NOTE | 2018-11-22 19:25 | NUR ---
RECEIVED PT AWAKE, ALERT AND ORIENTEDX4. PT SHOWS NO SIGNS OF ACUTE DISTRESS. PT IV INTACT AND PATENT. CALL LIGHT WITHIN REACH. SAFETY AND COMFORT PROVIDED.WILL CONTINUE TO MONITOR.
[2018-11-22 20:28] VITALS: BP 113/56
[2018-11-22] MEDS: ZOLPIDEM 5 MG TABLET PO PRN (22:37)
[2018-11-23 04:21] VITALS: BP 106/67
--- NOTE | 2018-11-23 06:06 | NUR ---
PT SLEPT THROUGHOUT THE SHIFT. PT SHOWS NO SIGNS OF ACUTE DISTRESS. PT IV INTACT. PRESCRIBED MEDICATION GIVEN AND PT TOLERATED IT WELL.. SAFETY AND COMFORT PROVIDED. ALL NEEDS ARE MET. WILL ENDORSE ACCORDINGLY TO INCOMING NURSE FOR CONTINUITY OF CARE.
--- NOTE | 2018-11-23 07:25 | NUR ---
AWAKE ALERT ORIENTED DENIES PAIN OR DISCOMFORTS AT THIS TIME ON ROOM AIR WITH NO SHORTNESS OF BREATH CALL LIGHT ARE WITHIN EASY REACH WILL CONTINUE TO OBSERVE.
[2018-11-23] MEDS: CARVEDILOL 3.125 MG TABLET PO SCH (08:28)
[2018-11-23] MEDS: FUROSEMIDE 20 MG/2 ML VIAL IV SCH (08:28)
[2018-11-23] MEDS: methylPREDNISolone SOD SUCC 40 MG/ML VIAL IV SCH (08:28)
[2018-11-23] MEDS: LISINOPRIL 5 MG TABLET PO SCH (08:29)
[2018-11-23 12:00] VITALS: BP 110/69
[2018-11-23] MEDS: LEVOFLOXACIN 500 MG/D5W 500 MG in PREMIXED 1 EACH IV SCH (12:21)
--- NOTE | 2018-11-23 12:33 | NUR ---
DISCHARGE PLANNING PATIENT STATED WILL CALL HER PRIMARY DOCTOR DR HAYES VO TO MAKE AN APPOINTMENT BUT REQUESTED THAT I CALL HIM AND INFORM HIM THAT SHE IS HERE AND WILL BE DISCHARGED TODAY.CALLED AND SPOKE WITH GARRY STATED WILL INFORM DR KOO
--- NOTE | 2018-11-23 12:37 | NUR ---
PER THE CONDENSER TESTER OVEN DUMPER TO CALL LOGISTIC FOR A SCANNING MANAGER WHEN PATIENT IS READY FOR DISCHARGE PATIENT IS AWARE.
[2018-11-23] MEDS ORDERED: LEVO500T2 PO (14:07)
[2018-11-23] MEDS ORDERED: FAMO-132 PO (14:07)
[2018-11-23] MEDS ORDERED: METH4TAB3 PO (14:07)
[2018-11-23] MEDS ORDERED: CARV3.122 PO (14:07)
--- NOTE | 2018-11-23 15:15 | NUR ---
PATIENT SEEN BY DR GONZALEZ WITH ORDER TO DISCHARGE PATIENT HOME TODAY PATIENT AWARE
--- NOTE | 2018-11-23 15:51 | NUR ---
DISCHARGE PRESCRIPTIONS FAXED TO THE [facility] AND SPOKE WIT CAM AND CONFIRMED THAT THE GOT IT AND WILL HAVE IT READY FOR PATIENT TO MEDICAL SOCIAL CONSULTANT
--- NOTE | 2018-11-23 15:57 | NUR ---
DISCHARGE INSTRUCTIONS AND PRESCRIPTIONS GIVEN TO PATIENT WAS INSTRUCTED TO FOLLOW UP WITH HER CLINICAL TRIAL ASSOCIATE FOR SLEEP APNEA STUDY PFT/TFL AND TO CONTINUE TAKING HER MEDICATIONS OTDERED AND SHE EXPRESSED UNDERSTANDING STATED CHANGED HER MIND WILL RATHER HAVE HER FRIEND PICK HER UP INSTEAD OF THE LIFT ARRANGED.WILL NOTIFY ME WHEN HER RIDE GETS HERE
[2018-11-23 16:00] VITALS: BP 112/65
[2018-11-23 16:03] VITALS: BP 112/65
--- NOTE | 2018-11-23 16:45 | NUR ---
PATIENT CALLED THE NURSES STATION AND STATED THAT HER FRIEND IS HERE DOWN STAIRS TO TAKE HER HOME PATIENT ASSISTED DOWN VIA A W/CHAIR WITH ALL OF HER PERSONAL BELONGINGS IN SATISFACTORY CONDITION.
[2018-11-24] MEDS ORDERED: FUROSEMIDE 40 MG TABLET PO SCH (09:00)
[2018-11-24] MEDS ORDERED: LISINOPRIL 5 MG TABLET PO SCH (09:00)
== END 2018-11-23 16:45 | disposition home or self-care (01) | DRG 720 ==
LOC: ER 22:24 → TELE 11-19 00:44 → MED 11-21 08:46
PROVIDERS: ADMIT Nurse Practitioner Acute Care; ATTEND Internal Medicine
DX: A41.9 Sepsis, unspecified organism (principal); J96.01 Acute respiratory failure with hypoxia; I50.23 Acute on chronic systolic (congestive) heart failure; J18.9 Pneumonia, unspecified organism; I42.9 Cardiomyopathy, unspecified; I11.0 Hypertensive heart disease with heart failure; R65.20 Severe sepsis without septic shock; E87.1 Hypo-osmolality and hyponatremia; M17.0 Bilateral primary osteoarthritis of knee; E66.9 Obesity, unspecified; G47.33 Obstructive sleep apnea (adult) (pediatric); Z68.37 Body mass index [BMI] 37.0-37.9, adult; E78.5 Hyperlipidemia, unspecified; Z87.01 Personal history of pneumonia (recurrent); R07.81 Pleurodynia; R73.09 Other abnormal glucose; I34.0 Nonrheumatic mitral (valve) insufficiency; Z82.49 Family history of ischemic heart disease and other diseases of the circulatory system
CPT/HCPCS: 36415; 70030-TC; 71045; 83605; 83735; 84100; 84443; 85025; 85730; 87040; 87400; 93005; 93307; 94640; 94664; A4663; G0378; J1650; J1940; J1956; J2543; J2920; J3370; J3490; J3590; J7050; J7512

== ENCOUNTER 2020-08-11 14:47 | Inpatient (IN) | payer OTHER ==
[~2020-08-11] VITALS: Ht 157.5 cm; Wt 90.7 kg
[~2020-08-11 14:47] MED LIST changes: +CARV3.122 PO; -CETI10CA PO; +FAMO-132 PO; +LEVO500T2 PO; -METO25TA6 PO
[2020-08-11] MEDS ORDERED: ATOR20TA PO (15:05)
[2020-08-11] MEDS ORDERED: LISI10TA5 PO (15:05)
[2020-08-11] MEDS ORDERED: METF-886 PO (15:05)
[2020-08-11 15:18] LABS: BASOPHILS # (AUTO) 0.1 K/uL (0.0-8.0); BASOPHILS % (AUTO) 0.9 % (0.0-2.0); EOSINOPHILS # (AUTO) 0.1 K/uL (0.0-0.7); EOSINOPHILS % (AUTO) 1.3 % (0.0-7.0); HEMATOCRIT 39.8 % (31.2-41.9); HEMOGLOBIN 13.5 g/dL (10.9-14.3); LYMPHOCYTES % (AUTO) 21.2 % (20.5-51.5); MEAN CORPUSCULAR HEMOGLOBIN 29.2 uug (24.7-32.8); MEAN CORPUSCULAR HGB CONC 34 g/dL (32.3-35.6); MONOCYTES # (AUTO) 0.8 K/uL (2.0-10.0); MONOCYTES % (AUTO) 8.8 % (0.0-11.0); NEUTROPHILS # (AUTO) 6.5 K/uL (1.8-8.9); NEUTROPHILS % (AUTO) 67.8 % (38.5-71.5); PLATELET COUNT (AUTO) 264 K/uL (179-408); RED BLOOD CELL COUNT(AUTO) 4.62 MIL/uL (3.63-4.92); WHITE BLOOD COUNT (AUTO) 9.6 K/uL (3.8-11.8)
[2020-08-11 15:28] LABS: CREATININE 0.9 mg/dL (0.6-1.3); POTASSIUM 4.1 mmol/L (3.5-5.1)
[2020-08-11 15:40] LABS: BILIRUBIN,DIRECT 0.1 mg/dL (0.0-0.2); BILIRUBIN,TOTAL 0.4 mg/dL (0.2-1.0); TOTAL PROTEIN, SERUM 7.3 g/dL (6.4-8.2)
[2020-08-11] MEDS ORDERED: ASPIRIN 325 MG TABLET PO ONE (15:45)
[2020-08-11] MEDS ORDERED: NITROGLYCERIN 0.4 MG/TAB BOTTLE SL ONE ×2 (15:45→15:48)
[2020-08-11] MEDS ORDERED: ASPIRIN 325 MG TABLET ONE (15:48)
--- NOTE | 2020-08-11 16:18 | NUR ---
Comfort and safety measures maintained. 2 pillows on, repositioning, listening ear and reassurance given. Patient is now waiting for her private insurance ([employer]) to call ER back per ER registration staff Janet.
--- NOTE | 2020-08-11 17:29 | NUR ---
65 year old female received from er via wheelchair to room 317 for chest pain .pt is axox4 vs are stable call light with in reach orient the pt to room and surroundings md called for admission orders
[2020-08-11 17:47] VITALS: BP 112/67
[2020-08-11] MEDS ORDERED: NITROGLYCERIN 0.4 MG/TAB BOTTLE SL PRN (18:15)
[2020-08-11] MEDS ORDERED: MAGNESIUM HYDROXIDE 30 ML LIQUID UDC PO PRN (18:15)
[2020-08-11] MEDS ORDERED: ALBUTEROL SULFATE 2.5 MG/3 ML NEBU NEB PRN (18:15)
[2020-08-11] MEDS ORDERED: ONDANSETRON 4 MG/2 ML VIAL IV PRN (18:15)
[2020-08-11] MEDS ORDERED: HYDROCODONE/APAP 5-325MG TABLET PO PRN (18:15)
[2020-08-11] MEDS ORDERED: MORPHINE SULFATE 2 MG/1 ML DISP.SYRIN IV PRN (18:15)
[2020-08-11] MEDS ORDERED: ACETAMINOPHEN 325 MG TABLET PO PRN (18:15)
[2020-08-11] MEDS: LORAZEPAM 1 MG TABLET PO PRN (18:29)
--- NOTE | 2020-08-11 20:00 | NUR ---
RECEIVED PATIENT ASLEEP IN BED. EASILY AROUSABLE. A/O X4. DENIES ANY PAIN OR DISCOMFORT. NO RESP. DISTRESS NOTED. HEPLOCK INTACT AND PATENT. ON TELE SR. CALL LIGHT IN REACH. ALL NEEDS ATTENDED, WILL CONTINUE TO MONITOR AND ASSESS.
[2020-08-11 20:39] VITALS: BP 90/44
[2020-08-11] MEDS: METFORMIN XR 500 MG TAB.SR.24H PO SCH ×2 (20:44→21:00)
[2020-08-11] MEDS: ATORVASTATIN 20 MG TABLET PO SCH (20:44)
[2020-08-11] MEDS: ENOXAPARIN SODIUM 40 MG/0.4 ML DISP.SYRIN SQ SCH (20:48)
[2020-08-12 00:54] VITALS: BP 106/46
[2020-08-12] MEDS: ZOLPIDEM 5 MG TABLET PO PRN ×2 (01:31→23:04)
[2020-08-12 01:48] LABS: *BILIRUBIN,URIN NEGATIVE (NEGATIVE); *CLARITY,URINE CLEAR (CLEAR); *COLOR,URINE YELLOW (YELLOW); *KETONES,URINE NEGATIVE (NEGATIVE); *UROBILINOGEN,URINE 0.2 E.U./dl (NORMAL); LEUKOCYTE ESTERASE ,URINE TRACE (NEGATIVE); NITRITE, URINE NEGATIVE (NEGATIVE); PH,URINE 5.5 (5.0-8.0); UGLUCOSE NEGATIVE (NEGATIVE)
[2020-08-12 01:50] LABS: *BLOOD, URINE TRACE INTACT (NEGATIVE)
[2020-08-12 03:02] LABS: BACTERIA,URINE FEW /HPF (NONE SEEN); RBC,URINE 0-3 /HPF (0-3); SQUAMOUS EPITHELIAL CELL,UR MODERATE /HPF (NONE SEEN); URINE AMORPHOUS URATE FEW /HPF
[2020-08-12 05:25] VITALS: BP 112/58
[2020-08-12 06:16] LABS: BASOPHILS # (AUTO) 0.1 K/uL (0.0-8.0); BASOPHILS % (AUTO) 0.9 % (0.0-2.0); EOSINOPHILS # (AUTO) 0.1 K/uL (0.0-0.7); EOSINOPHILS % (AUTO) 1.4 % (0.0-7.0); HEMATOCRIT 38.4 % (31.2-41.9); HEMOGLOBIN 12.9 g/dL (10.9-14.3); LYMPHOCYTES # (AUTO) 2.9 K/uL (20.0-40.0); LYMPHOCYTES % (AUTO) 37.8 % (20.5-51.5); MEAN CORPUSCULAR HGB CONC 34 g/dL (32.3-35.6); MEAN CORPUSCULAR VOLUME 86.7 fL (75.5-95.3); MONOCYTES # (AUTO) 0.5 K/uL (2.0-10.0); MONOCYTES % (AUTO) 6.9 % (0.0-11.0); NEUTROPHILS # (AUTO) 4.1 K/uL (1.8-8.9); PLATELET COUNT (AUTO) 238 K/uL (179-408); RED BLOOD CELL COUNT(AUTO) 4.43 MIL/uL (3.63-4.92); WHITE BLOOD COUNT (AUTO) 7.8 K/uL (3.8-11.8)
[2020-08-12 06:39] LABS: THYROID STIMULATING HORMONE 1.489 mIU/mL (0.358-3.740)
[2020-08-12 06:41] LABS: BILIRUBIN,TOTAL 0.5 mg/dL (0.2-1.0); CREATININE 0.9 mg/dL (0.6-1.3); MAGNESIUM 2.4 mg/dL (1.8-2.4); PHOSPHOROUS 3.8 mg/dL (2.5-4.9); POTASSIUM 4.2 mmol/L (3.5-5.1); TOTAL PROTEIN, SERUM 6.9 g/dL (6.4-8.2)
[2020-08-12 07:30] VITALS: BP 110/60
--- NOTE | 2020-08-12 08:12 | NUR ---
Received patient in bed, awake, alert and verbally responsive. No signs of distress noted. no SOB. No complain of pain. No complain of Chest pain. kept the call light within easy reach. Will continue to monitor.
[2020-08-12] MEDS: METFORMIN XR 500 MG TAB.SR.24H PO SCH ×2 (08:27→17:58)
[2020-08-12] MEDS: CEphaleXIN 500 MG CAPSULE PO SCH ×2 (08:29→20:05)
[2020-08-12] MEDS: CARVEDILOL 3.125 MG TABLET PO SCH ×2 (08:29→17:58)
[2020-08-12] MEDS: LISINOPRIL 10 MG TABLET PO SCH (08:29)
[2020-08-12] MEDS: FAMOTIDINE 20 MG TABLET PO SCH (08:29)
[2020-08-12] MEDS ORDERED: LACTULOSE 20 G/30 ML LIQUID UDC PO ONE (09:00)
[2020-08-12] MEDS ORDERED: BISACODYL 5 MG TABLET.DR PO ONE (09:00)
[2020-08-12 15:55] VITALS: BP 119/65
[2020-08-12] MEDS ORDERED: SERTRALINE HCL 50 MG TABLET PO SCH (17:00)
--- NOTE | 2020-08-12 17:19 | NUR ---
report given to Livia ARRIAGA
[2020-08-12 19:54] VITALS: BP 106/52
[2020-08-12] MEDS: ENOXAPARIN SODIUM 40 MG/0.4 ML DISP.SYRIN SQ SCH (20:05)
[2020-08-12] MEDS: ATORVASTATIN 20 MG TABLET PO SCH (20:05)
[2020-08-12] MEDS: LORAZEPAM 1 MG TABLET PO PRN (20:06)
[2020-08-12] MEDS ORDERED: SENNOSIDES 1 TABLET PO SCH (21:00)
[2020-08-12 23:38] VITALS: BP 106/48
[2020-08-13 00:46] VITALS: BP 111/60
[2020-08-13 04:55] VITALS: BP 126/58
--- NOTE | 2020-08-13 06:30 | NUR ---
PATIENT ASLEEP IN BED. SLEPT WELL. RODERICKIEN EFFECTIVE. ON TELE SR. VS WNL. DENIES ANY CHEST PAIN OR DISCOMFORT. CALL LIGHT IN REACH. ALL NEEDS ATTENDED. WILL CONTINUE TO MONITOR.
[2020-08-13 06:33] LABS: BASOPHILS # (AUTO) 0.1 K/uL (0.0-8.0); EOSINOPHILS # (AUTO) 0.1 K/uL (0.0-0.7); EOSINOPHILS % (AUTO) 1.8 % (0.0-7.0); HEMATOCRIT 38.6 % (31.2-41.9); HEMOGLOBIN 13.2 g/dL (10.9-14.3); LYMPHOCYTES # (AUTO) 2.7 K/uL (20.0-40.0); LYMPHOCYTES % (AUTO) 33.4 % (20.5-51.5); MEAN CORPUSCULAR HEMOGLOBIN 29.5 uug (24.7-32.8); MEAN CORPUSCULAR HGB CONC 34 g/dL (32.3-35.6); MEAN CORPUSCULAR VOLUME 86.3 fL (75.5-95.3); MONOCYTES # (AUTO) 0.6 K/uL (2.0-10.0); MONOCYTES % (AUTO) 7.7 % (0.0-11.0); NEUTROPHILS # (AUTO) 4.6 K/uL (1.8-8.9); NEUTROPHILS % (AUTO) 56.1 % (38.5-71.5); PLATELET COUNT (AUTO) 242 K/uL (179-408); RED BLOOD CELL COUNT(AUTO) 4.48 MIL/uL (3.63-4.92); WHITE BLOOD COUNT (AUTO) 8.2 K/uL (3.8-11.8)
[2020-08-13 06:39] LABS: CREATININE 0.9 mg/dL (0.6-1.3)
[2020-08-13 08:00] VITALS: BP 113/34
--- NOTE | 2020-08-13 08:00 | NUR ---
awake alert and oriented, denies of pain, no shortness of breath, tele SR, instructions of plan of care given- verbalized understanding, safety measures maintained, call light with reach, needs attended
[2020-08-13] MEDS: CARVEDILOL 3.125 MG TABLET PO SCH (08:42)
[2020-08-13] MEDS: FAMOTIDINE 20 MG TABLET PO SCH (08:42)
[2020-08-13] MEDS: METFORMIN XR 500 MG TAB.SR.24H PO SCH (08:42)
[2020-08-13] MEDS: CEphaleXIN 500 MG CAPSULE PO SCH (08:42)
[2020-08-13] MEDS: LISINOPRIL 10 MG TABLET PO SCH (08:43)
[2020-08-13] MEDS ORDERED: ASPIRIN EC 81 MG TABLET.DR PO SCH (09:00)
--- NOTE | 2020-08-13 09:00 | NUR ---
seen by Onur Roe BUDGET SPECIALIST- to be discharged today
--- NOTE | 2020-08-13 10:00 | NUR ---
seen by Dr Moctezuma-proposal analyst, states had slight dizziness while in the bathroom, orthostatic BP done and seen by him- ok to be d/c today
[2020-08-13 10:15] VITALS: BP_SYST 110; BP_SYST 113; BP_SYST 119; BP_DIAS 51; BP_DIAS 65; BP_DIAS 68
[2020-08-13] MEDS ORDERED: SERT25TA PO (11:47)
[2020-08-13] MEDS ORDERED: FURO-152 PO (11:47)
[2020-08-13] MEDS ORDERED: LORA-259 PO (11:47)
[2020-08-13] MEDS ORDERED: ZOLP5TAB2 PO (11:47)
[2020-08-13] MEDS ORDERED: CEPH-570 PO (11:47)
[2020-08-13] MEDS ORDERED: NITR0.4T SL (11:47)
--- NOTE | 2020-08-13 12:00 | NUR ---
eating lunch, no further complaints of any dizziness, no chest pain, states calling friend to take her home
--- NOTE | 2020-08-13 15:15 | NUR ---
discharge instructions given and so with prescription- verbalized understanding, saline lock removed- site without any redness/ swelling noted, id bracelet removed, escorted to car per w/c in stable condition, all belongings with her
== END 2020-08-13 15:15 | disposition home or self-care (01) | DRG 292 ==
LOC: ER 14:47 → TELE3 16:54
PROVIDERS: ADMIT Nurse Practitioner Acute Care; ATTEND Nurse Practitioner Acute Care
DX: I11.0 Hypertensive heart disease with heart failure (principal); E44.1 Mild protein-calorie malnutrition; F33.2 Major depressive disorder, recurrent severe without psychotic features; N39.0 Urinary tract infection, site not specified; I20.0 Unstable angina; I50.23 Acute on chronic systolic (congestive) heart failure; I42.8 Other cardiomyopathies; I08.1 Rheumatic disorders of both mitral and tricuspid valves; E11.9 Type 2 diabetes mellitus without complications; Z79.84 Long term (current) use of oral hypoglycemic drugs; J44.9 Chronic obstructive pulmonary disease, unspecified; M19.90 Unspecified osteoarthritis, unspecified site; K21.9 Gastro-esophageal reflux disease without esophagitis; F41.9 Anxiety disorder, unspecified; E66.9 Obesity, unspecified; Z68.36 Body mass index [BMI] 36.0-36.9, adult; E88.09 Other disorders of plasma-protein metabolism, not elsewhere classified; Z91.19 Patient's noncompliance with other medical treatment and regimen; E78.5 Hyperlipidemia, unspecified; Z82.49 Family history of ischemic heart disease and other diseases of the circulatory system; Z86.73 Personal history of transient ischemic attack (TIA), and cerebral infarction without residual deficits; Z87.891 Personal history of nicotine dependence; Z71.3 Dietary counseling and surveillance
CPT/HCPCS: 36415; 70030-TC; 71045; 83735; 84100; 84443; 85025; 87086; 93005; 93307; A4663; G0378; J1650